=== PATIENT | male | born 1970 | race Caucasian/White ===

== ENCOUNTER 2020-12-13 19:20 | Emergency (ER) | payer SELFPAY ==
[~2020-12-13] VITALS: Ht 170.1 cm; Wt 86.2 kg
[2020-12-14] MEDS ORDERED: ORPHENADRINE C100 M1 PO (02:10)
[2020-12-14] MEDS ORDERED: MEDROL DOSEPAK4 MG PO (02:10)
== END 2020-12-14 02:10 | disposition home or self-care (01) ==
LOC: ED 19:20
DX: S16.1XXA Strain of muscle, fascia and tendon at neck level, initial encounter (principal); M48.02 Spinal stenosis, cervical region; M47.812 Spondylosis without myelopathy or radiculopathy, cervical region; X58.XXXA Exposure to other specified factors, initial encounter; Y93.89 Activity, other specified; Y92.89 Other specified places as the place of occurrence of the external cause; Y99.8 Other external cause status